=== PATIENT | female | born 1985 | race Caucasian/White ===

== ENCOUNTER 2016-07-27 08:52 | Emergency (ER) | payer OTHER ==
--- NOTE | 2016-07-27 11:21 | ED NURSING NOTES ---
Clinical Report - [facility] [address] [place] [address] 07/27/2016 8:55 Patient: LA NENA VERAS TRIAGE Triage time 08:59 Jul 27 2016. Acuity: LEVEL 3. Chief Complaint: SORE THROAT and (swollen/painful throat with dysphagia). SEPSIS SCREEN: Sepsis Screen: negative. --09:05 Zack Munguia R.N. 08:58 07/27/16. BP: 135/76. HR: 80. RR: 16. O2 saturation: 99% on room air. Temp: 99 F (oral). Pain level now: 11/13. --09:05 Zack Munguia R.N. Weight: 77.1 kg stated. Height/Length: 64 inches Per Patient. BMI: 29.2. --08:57 Zack Munguia R.N. Medications Plus Iron Oral. --08:59 Zack Munguia R.N. Protonix Oral. --08:59 Zack Munguia R.N. Allergies Amoxicillin. --08:58 Zack Munguia R.N. Latex. --08:58 Zack Munguia R.N. IV Contrast. --08:58 Zack Munguia R.N. History Arrived by private vehicle. Historian: patient and family. Accompanied by family. Onset. (3 days ago). She has had fever (unknown). Treatment SURVEYOR HYDROGRAPHIC: None. PAST MEDICAL HX: Strep throat (multiple times in the past year). Immunizations: up-to-date. Denies current : post 2 weeks. ( Pt denies tonsillectomy.). SOCIAL HX: Never smoker. Alcohol use. Last drink was 2 years ago. History of drug use: marijuana. Recently used drugs yesterday. (smokes). The patient was exposed to MRSA. (Negative in December of 2015). FALL RISK ASSESSMENT: Fall risk assessment completed. No fall risk identified. NUTRITIONAL RISK ASSESSMENT: The nutritional risk assessment revealed no deficiencies. FUNCTIONAL ASSESSMENT: Functional assessment: no impairments noted. LEARNING NEEDS ASSESSMENT: The learning needs assessment revealed no barriers. SKIN INTEGRITY ASSESSMENT: Skin integrity risk assessment completed. No skin integrity risk identified. --09:05 Zack Munguia R.N. PROBLEMS: Peptic Ulcer Disease. 2. --09:02 Zack Munguia R.N. Interventions ID band on patient. To treatment room. --09:05 Zack Munguia R.N. PHYSICAL ASSESSMENT Ambulatory to room. GENERAL / NEURO / PSYCH: Alert. Appears in distress. HEENT: Runny nose. Voice abnormal. ( Pt reports dysphagia, swollen glands, pain in neck and shoulders). Mucous membranes are pink. RESPIRATORY: Respirations not labored. SKIN: Skin is dry. Skin is diaphoretic. --09:07 Zack Munguia R.N. NURSING PROGRESS NOTES Monitoring of patient in place. Patient gowned. Head of bed elevated. Checked patient name and birthdate: patient confirmed. Throat swab obtained for rapid strep; labeled in the presence of the patient. Two patient identifiers checked. Call light placed in reach. Side rails up x 2. Bed placed in lowest position. Patient ready for evaluation- chart flagged and ED physician notified. --09:07 Zack Munguia R.N. Checked patient name and birthdate: patient confirmed. Blood samples drawn from the right antecubital space peripheral IV site with Vacutainer by nurse per protocol ; labeled in presence of the patient and sent to lab: rainbow set. Line flushed with 10 mL normal saline post blood draw. --09:23 Zack Munguia R.N. 09:36 07/27/2016 Site #1 started via IV in the right antecubital space with an 20g angiocath, with aseptic technique and good blood return; one attempt. Saline lock flushed with 10 mL saline. --09:51 Zack Munguia R.N. 09:51 07/27/2016 Started bag #1 1000 mL IV Fluids IV NS (Saline); bolus of 1000 mL wide open via site #1. Allergies verified and confirmed 5 rights. IV patency established. IV site checked: no pain, redness, or swelling. IV flushed thoroughly pre- and post-medication administration. --09:51 Zack Munguia R.N. 09:54 07/27/2016 Toradol IVP 30 mg given. via site #1. Allergies verified and confirmed 5 rights. IV patency established. IV site checked: no pain, redness, or swelling. IV flushed thoroughly pre- and post-medication administration. IVP given by RN. --09:54 Zack Munguia R.N. 09:51 07/27/16. BP: 120/86. HR: 94. RR: 20. O2 saturation: 95% on room air. Pain level now: 12/14. --09:55 Zack Munguia R.N. ( Pt is tearful, reporting severe pain. Ordered Toradol given, IVF infusing, S/O at bedside, TM.). --09:55 Zack Munguia R.N. 10:26 07/27/2016 Toradol IVP Response: no adverse reaction symptoms are the same. The patient feels the same. --10:26 Zack Munguia R.N. 10:26 07/27/2016 IV Fluids IV NS Discontinued: bag #1 infused. Total amount infused: 1000 mL. IV patency established. IV site checked: no pain, redness, or swelling. IV flushed thoroughly. --10:26 Zack Munguia R.N. DISPOSITION / DISCHARGE Condition at departure: improved and stable. The goals identified in the patient's plan of care were met. No learning barriers present. Discharge instructions provided and reviewed with the patient. Reviewed warnings. Reviewed medication(s) side effects, precautions, dosing and course information. Prescription(s) given to the patient (azithromax). Activity restrictions (rest) reviewed. Patient and spouse verbalized understanding. Written instructions provided in Maltese. No treatment instructions or referrals given to the patient. The patient was discharged by the physician. She was discharged home and accompanied by spouse. She left the Emergency Department ambulatory and via private vehicle. Patient driving. FALL RISK ASSESSMENT: Fall risk assessment completed. No fall risk identified. --11:31 Tenisha Cannon R.N. 11:27 07/27/16. BP: 134/80. HR: 93. RR: 18. O2 saturation: 97% on room air. Temp: 98.4 F (oral). Pain level now: 01/14. --11:31 Cannon, Tenisha, R.N. Locked/Released at 07/27/2016 11:40 by Zack Munguia R.N.
--- NOTE | 2016-07-27 11:21 | ED CLINICAL REPORT ---
Clinical Report - Physicians/Mid Levels [facility] [address] [place] [address] 07/27/2016 8:55 Patient: LA NENA VERAS Time Seen: 09:05; initial patient contact. Arrived- By private vehicle. Historian- patient. HISTORY OF PRESENT ILLNESS Chief Complaint: SORE THROAT. This started yesterday and is still present and worsening. It was gradual in onset. Pain described as moderate. The patient has had a sore throat, nasal congestion and a nasal discharge. Similar symptoms previously: None. Recent medical care: Not recently seen/assessed. REVIEW OF SYSTEMS No fever, nausea, headache, vomiting or skin rash. She has had a sore throat, chills and fatigue. All systems otherwise negative, except as recorded above. PAST HISTORY Peptic Ulcer Disease. 2. Medications: Protonix Oral. Plus Iron Oral. Allergies: Amoxicillin. IV Contrast. Latex. SOCIAL HISTORY Never smoker. History of drug use: marijuana. No alcohol use. ADDITIONAL NOTES The nursing notes have been reviewed with agreement regarding the chief complaint, PMH and patient medications and allergies. PHYSICAL EXAM Appearance: Alert. No acute distress. Eyes: Conjunctivae and eyelids normal. ENT: Dry mucous membranes present. Moderate generalized pharyngeal erythema with right tonsillar swelling and exudate and left tonsillar swelling and exudate. No trismus present. Neck: Mild right anterior neck and mild left anterior neck lymphadenopathy present. CVS: Normal heart rate and rhythm. Heart sounds normal. Respiratory: No respiratory distress. Breath sounds normal. Skin: No rash. Neuro: Oriented X 3. LABS, X-RAYS, AND EKG Laboratory Tests: Culture, Strep Screen: (GRZEGORZ: 07/27/2016 09:15) ( MsgRcvd 07/27/2016 09:49) Final results Test Result Flag Units (Reference) RAPID STREP SCREEN - THROAT DATE: 07/27/16 POSITIVE SCREEN: RAPID STREP SCREEN: POSITIVE FOR GROUP A STREP . PROGRESS AND PROCEDURES Disposition: Discharged home in good and improved condition. Condition: good. CLINICAL IMPRESSION Acute streptococcal pharyngitis INSTRUCTIONS Alternate Tylenol (Acetaminophen) or Motrin (Ibuprofen) for fever. Take according to label instructions. Prescription Medications: Zithromax take 2 orally today, followed by 1 orally every day for the next 4 days. Total course 5 days. No refills. Substitution is permissible. Follow-up: Follow up with your doctor in about four days if not better. Call for an appointment. (Electronically signed by Cyrus Berg Dr. 07/27/2016 11:22)
--- NOTE | 2016-07-27 11:21 | ED CLINICAL REPORT ---
Clinical Report - Physicians/Mid Levels [facility] [address] [address] 07/27/2016 8:55 Patient: LA NENA VERAS Time Seen: 09:05; initial patient contact. Arrived- By private vehicle. Historian- patient. HISTORY OF PRESENT ILLNESS Chief Complaint: SORE THROAT. This started yesterday and is still present and worsening. It was gradual in onset. Pain described as moderate. The patient has had a sore throat, nasal congestion and a nasal discharge. Similar symptoms previously: None. Recent medical care: Not recently seen/assessed. REVIEW OF SYSTEMS No fever, nausea, headache, vomiting or skin rash. She has had a sore throat, chills and fatigue. All systems otherwise negative, except as recorded above. PAST HISTORY Peptic Ulcer Disease. 2. Medications: Protonix Oral. Plus Iron Oral. Allergies: Amoxicillin. IV Contrast. Latex. SOCIAL HISTORY Never smoker. History of drug use: marijuana. No alcohol use. ADDITIONAL NOTES The nursing notes have been reviewed with agreement regarding the chief complaint, PMH and patient medications and allergies. PHYSICAL EXAM Appearance: Alert. No acute distress. Eyes: Conjunctivae and eyelids normal. ENT: Dry mucous membranes present. Moderate generalized pharyngeal erythema with right tonsillar swelling and exudate and left tonsillar swelling and exudate. No trismus present. Neck: Mild right anterior neck and mild left anterior neck lymphadenopathy present. CVS: Normal heart rate and rhythm. Heart sounds normal. Respiratory: No respiratory distress. Breath sounds normal. Skin: No rash. Neuro: Oriented X 3. LABS, X-RAYS, AND EKG Laboratory Tests: Culture, Strep Screen: (GRZEGORZ: 07/27/2016 09:15) ( MsgRcvd 07/27/2016 09:49) Final results Test Result Flag Units (Reference) RAPID STREP SCREEN - THROAT DATE: 07/27/16 POSITIVE SCREEN: RAPID STREP SCREEN: POSITIVE FOR GROUP A STREP . PROGRESS AND PROCEDURES Disposition: Discharged home in good and improved condition. Condition: good. CLINICAL IMPRESSION Acute streptococcal pharyngitis INSTRUCTIONS Alternate Tylenol (Acetaminophen) or Motrin (Ibuprofen) for fever. Take according to label instructions. Prescription Medications: Zithromax take 2 orally today, followed by 1 orally every day for the next 4 days. Total course 5 days. No refills. Substitution is permissible. Follow-up: Follow up with your doctor in about four days if not better. Call for an appointment. (Electronically signed by Cyrus Berg Dr. 07/27/2016 11:22)
--- NOTE | 2016-07-27 11:21 | ED ORDER SUMMARY ---
..... Patient: LA NENA VERAS OrderSheet [facility] VisitID: [id number] [place] [address] 31y, F Registration Date/Time: 07/27/2016 ORDER SHEET Weight: 77.1 kg (stated) Allergies: Amoxicillin, Latex, IV Contrast GENERAL ORDERS: Culture, Strep Screen Urgent (:07/27/2016 Juana Mak) (Ack 9:36 José) (9:42 Adriana R.N.) MEDICATION ORDERS: IV FLUIDS: Toradol IV 30 mg (NOW) (:07/27/2016 Juana Mak) (9:54 Adriana R.N.) IV NS : initial bolus none -, then 1000 mL/hr for X1 (NOW) (09:07/27/2016 Juana Mak) (9:51 Adriana R.N.) ORDER SHEET NOTES: [Electronically signed by Cyrus Berg Dr. (11:22 07/27/2016)] [Electronically signed by Zack Munguia R.N. (11:40 07/27/2016)] [Electronically locked/signed by Zack Munguia R.N. (11:40 07/27/2016)]
--- NOTE | 2016-07-27 11:21 | ED ORDER SUMMARY ---
..... Patient: LA NENA VERAS OrderSheet [facility] VisitID: [id number] [place] [address] 31y, F Registration Date/Time: 07/27/2016 ORDER SHEET Weight: 77.1 kg (stated) Allergies: Amoxicillin, Latex, IV Contrast GENERAL ORDERS: Culture, Strep Screen Urgent (:07/27/2016 Juana Mak) (Ack 9:36 José) (9:42 Adriana R.N.) MEDICATION ORDERS: IV FLUIDS: Toradol IV 30 mg (NOW) (:07/27/2016 Juana Mak) (9:54 Adriana R.N.) IV NS : initial bolus none -, then 1000 mL/hr for X1 (NOW) (09:07/27/2016 Juana Mak) (9:51 Adriana R.N.) ORDER SHEET NOTES: [Electronically signed by Cyrus eBrg Dr. (11:22 07/27/2016)] [Electronically signed by Zack Munguia R.N. (11:40 07/27/2016)] [Electronically locked/signed by Zack Munguia R.N. (11:40 07/27/2016)]
--- NOTE | 2016-07-27 11:40 | ED MAR SUMMARY ---
..... Medication Administration Record [facility] [address] [place] [address] Patient: LA NENA VERAS Visit ID: [id number] 31y, F Weight: 77.1 kg Height/Length: 64 in BMI: 29.2 ALLERGIES: IV Contrast, Latex, Amoxicillin Start 09:51 07/27/2016 Zack Munguia R.N., Stop 10:26 07/27/2016 Zack Munguia R.N. Medication Administered: IV NS (SALINE), Dose: IV Fluids, Bolus: 1000 mL wide open, Dispensed: 1000 mL bag, Site: #1 right AC. Medication Ordered: IV NS : initial bolus none -, then 1000 mL/hr for X1 (NOW). Given 09:54 07/27/2016 Zack Munguia R.N. Medication Administered: TORADOL [IVP], Dose: 30 mg IVP, Site: #1 right AC. Medication Ordered: Toradol IV 30 mg (NOW).
--- NOTE | 2016-07-27 11:40 | ED MED RECONCILIATION SUMMARY ---
Patient: LA NENA VERAS Medication Reconciliation Report [facility] VisitID: [id number] [address] [place] [address] 31y, F Registration Date/Time: 07/27/2016 Weight: 77.1 kg Height/Length: 64 in. BMI: 29.2 ALLERGIES: Amoxicillin, IV Contrast, Latex The patient's Home Medications are listed below: THE FOLLOWING MEDICATIONS NEED TO BE RECONCILED: Plus Iron Oral Protonix Oral The source(s) of the original Home Medication information: Not obtained. The following Medications were given to the patient in the Emergency Department: IV NS IV Fluids bolus 1000 mL wide open, administered: 07/27/2016 9:51:00 AM Toradol [IVP] IVP 30 mg, administered: 07/27/2016 9:54:00 AM The following Medications were prescribed to the patient: Zithromax take 2 orally today, followed by 1 orally every day for the next 4 days. Total course 5 days. No refills. Substitution is permissible. -- Cyrus Berg Dr.
--- NOTE | 2016-07-27 11:40 | ED MED RECONCILIATION SUMMARY ---
Patient: LA NENA VERAS Medication Reconciliation Report [facility] VisitID: [id number] [address] [place] [address] 31y, F Registration Date/Time: 07/27/2016 Weight: 77.1 kg Height/Length: 64 in. BMI: 29.2 ALLERGIES: Amoxicillin, IV Contrast, Latex The patient's Home Medications are listed below: THE FOLLOWING MEDICATIONS NEED TO BE RECONCILED: Plus Iron Oral Protonix Oral The source(s) of the original Home Medication information: Not obtained. The following Medications were given to the patient in the Emergency Department: IV NS IV Fluids bolus 1000 mL wide open, administered: 07/27/2016 9:51:00 AM Toradol [IVP] IVP 30 mg, administered: 07/27/2016 9:54:00 AM The following Medications were prescribed to the patient: Zithromax take 2 orally today, followed by 1 orally every day for the next 4 days. Total course 5 days. No refills. Substitution is permissible. -- Cyrus Berg Dr.
--- NOTE | 2016-07-27 11:40 | ED DISCHARGE INSTRUCTIONS ---
Patient: LA NENA VERAS General Instructions [facility] VisitID: [id number] [address] [place] [address] 31y, F Registration Date/Time: 07/27/2016 Acute streptococcal pharyngitis INSTRUCTIONS Alternate Tylenol (Acetaminophen) or Motrin (Ibuprofen) for fever. Take according to label instructions. Prescription Medications: Zithromax take 2 orally today, followed by 1 orally every day for the next 4 days. Total course 5 days. No refills. Substitution is permissible. Follow-up: Follow up with your doctor in about four days if not better. Call for an appointment. ADDITIONAL INFORMATION Pharyngitis: Strep [Confirmed] Your test for strep throat was positive. Strep throat is a contagious illness. It is spread by coughing, kissing or by touching others after touching your mouth or nose. Symptoms include throat pain which is worse with swallowing, aching all over, headache and fever. You will be treated with an antibiotic which should make you start to feel better within 1-2 days. Home Care: Rest at home and drink plenty of fluids to avoid dehydration. No school or work for the first two days on antibiotics. You will not be contagious after this time and if you are feeling better, you can return to school or work. Take your antibiotics for a full 10 days, even if you feel better after the first few days of treatment. This is very important to prevent heart or kidney disease that can result as a complication of untreated strep throat infection. Children: Use acetaminophen (Tylenol) for fever, fussiness or discomfort. In infants over six months of age, you may use ibuprofen (Children's Motrin) instead of Tylenol. [NOTE: If your child has chronic liver or kidney disease or ever had a stomach ulcer or GI bleeding, talk with your doctor before using these medicines.] (Aspirin should never be used in anyone under 18 years of age who is ill with a fever. It may cause severe liver damage.)Adults: You may use acetaminophen (Tylenol) or ibuprofen (Motrin, Advil) to control pain or fever, unless another medicine was prescribed for this. [NOTE: If you have chronic liver or kidney disease or ever had a stomach ulcer or GI bleeding, talk with your doctor before using these medicines.] Throat lozenges or sprays (Chloraseptic and others) will reduce pain. Gargling with warm salt water will also reduce throat pain. Dissolve 1/2 teaspoon of salt in 1 glass of warm water. This is especially useful just before meals. Follow Up with your doctor or as directed by our staff if you are not improving over the next week. Get Prompt Medical Attention if any of the following occur: Fever of 100.4F (38C) oral or higher, not better with fever medication New or worsening ear pain, sinus pain or headache Painful lumps in the back of your neck Unable to swallow liquids or open your mouth wide due to throat pain Trouble breathing or noisy breathing Muffled voice New rash Fever Control (Adult) A fever is a natural reaction of the body to an illness. In most cases, the temperature itself is not harmful. It actually helps the body fight infections. A fever does not need to be treated unless you feel very uncomfortable. Home Care If you feel warm, check your temperature. If you feel very uncomfortable and your temperature is at or higher than 100.4F (38C) oral, you may take acetaminophen (Tylenol) every 4 to 6 hours. If you cant take or keep down oral medicine, ask your pharmacist for Tylenol suppositories, which you can get without a prescription. If the fever does not respond to acetaminophen within 1 hour, take ibuprofen (Advil or Motrin). If this works, keep taking the ibuprofen every 6 to 8 hours. Note: If you have chronic liver or kidney disease or ever had a stomach ulcer or GI bleeding, talk with your doctor before using these medications. If either medication alone does not keep the fever down, you may alternate the two medicines every 3 to 4 hours, only if your healthcare provider has instructed you to do so. For example, take Motrin then wait 3 hours, take Tylenol then wait 3 hours, take Motrin, and so on. Follow your healthcare providers instructions exactly. Clothing: Keep clothing light because excess body heat is lost through the skin. The fever will go up if you wear extra layers or wrap in blankets. Fluids: Fever causes the body to lose water through evaporation. Drink plenty of fluids such as water, juice, clear sodas, joe mikael, or lemonade. Do not use aspirin in anyone under 18 years of age who is ill with a fever. It can cause severe liver damage. Follow Up with your doctor or as advised by our staff if you do not get better after 48 hours. Get Prompt Medical Attention if any of the following occur: Fever does not get better after taking fever medication Fast or difficult breathing Earache, sinus pain, stiff or painful neck, headache, repeated diarrhea or vomiting You feel unusually irritable, drowsy, or confused A rash appears You feel weak or dizzy, or that you might faint Azithromycin Oral tablet What is this medicine? AZITHROMYCIN (az ith anne-mariemarianne MARES sin) is a macrolide antibiotic. It is used to treat or prevent certain kinds of bacterial infections. It will not work for colds, flu, or other viral infections. How should I use this medicine? Take this medicine by mouth with a full glass of water. Follow the directions on the prescription label. The tablets can be taken with food or on an empty stomach. If the medicine upsets your stomach, take it with food. Take your medicine at regular intervals. Do not take your medicine more often than directed. Take all of your medicine as directed even if you think your are better. Do not skip doses or stop your medicine early. Talk to your clinical associate regarding the use of this medicine in children. Special care may be needed. What side effects may I notice from receiving this medicine? Side effects that you should report to your doctor or health residential care facility manager as soon as possible: allergic reactions like skin rash, itching or hives, swelling of the face, lips, or tongue confusion, nightmares or hallucinations dark urine difficulty breathing hearing loss irregular heartbeat or chest pain pain or difficulty passing urine redness, blistering, peeling or loosening of the skin, including inside the mouth white patches or sores in the mouth yellowing of the eyes or skin Side effects that usually do not require medical attention (report to your doctor or health residential care facility manager if they continue or are bothersome): diarrhea dizziness, drowsiness headache stomach upset or vomiting tooth discoloration vaginal irritation What may interact with this medicine? Do not take this medicine with any of the following medications: lincomycin This medicine may also interact with the following medications: amiodarone antacids cyclosporine digoxin magnesium nelfinavir phenytoin warfarin What if I miss a dose? If you miss a dose, take it as soon as you can. If it is almost time for your next dose, take only that dose. Do not take double or extra doses. Where should I keep my medicine? Keep out of the reach of children. Store at room temperature between 15 and 30 degrees C (59 and 86 degrees F). Throw away any unused medicine after the expiration date. What should I tell my health care provider before I take this medicine? They need to know if you have any of these conditions: kidney disease liver disease irregular heartbeat or heart disease an unusual or allergic reaction to azithromycin, erythromycin, other macrolide antibiotics, foods, dyes, or preservatives or trying to get breast-feeding What should I watch for while using this medicine? Tell your doctor or health residential care facility manager if your symptoms do not improve. Do not treat diarrhea with over the counter products. Contact your doctor if you have diarrhea that lasts more than 2 days or if it is severe and watery. This medicine can make you more sensitive to the sun. Keep out of the sun. If you cannot avoid being in the sun, wear protective clothing and use sunscreen. Do not use sun lamps or tanning beds/booths. You have been given the following additional information: Pharyngitis, Strep (Confirmed) Fever Control (Adult) Azithromycin Oral tablet (Electronically signed by Cyrus Berg Dr. 07/27/2016 11:22)
--- NOTE | 2016-07-27 11:40 | ED MAR SUMMARY ---
..... Medication Administration Record [facility] [address] [place] [address] Patient: LA ENNA VERAS Visit ID: [id number] 31y, F Weight: 77.1 kg Height/Length: 64 in BMI: 29.2 ALLERGIES: IV Contrast, Latex, Amoxicillin Start 09:51 07/27/2016 Zack Munguia R.N., Stop 10:26 07/27/2016 Zack Munguia R.N. Medication Administered: IV NS (SALINE), Dose: IV Fluids, Bolus: 1000 mL wide open, Dispensed: 1000 mL bag, Site: #1 right AC. Medication Ordered: IV NS : initial bolus none -, then 1000 mL/hr for X1 (NOW). Given 09:54 07/27/2016 Zack Munguia R.N. Medication Administered: TORADOL [IVP], Dose: 30 mg IVP, Site: #1 right AC. Medication Ordered: Toradol IV 30 mg (NOW).
== END 2016-07-27 11:40 | disposition home or self-care (01) ==
LOC: ED SRH 08:52
DX: J02.0 Streptococcal pharyngitis (principal); Z88.1 Allergy status to other antibiotic agents
CPT/HCPCS: 90154